=== PATIENT | male | born 1935 | race Asian ===

== ENCOUNTER 2020-01-13 12:09 | Inpatient (IN) | payer BC ==
[~2020-01-13] VITALS: Ht 172.7 cm; Wt 58.0 kg
--- NOTE | 2020-01-13 12:10 | NUR ---
ED Nurse Note: patient brought into ED from [facility] by ambulance BLS due to increased confusion for the past 2 days. patient is awake, confused, following commands, ambulatory, on a hospital gown,
--- NOTE | 2020-01-13 13:00 | NUR ---
HAND-OFF: Report given to Lidia MARTINEZ. endorsed all plan of care.
[2020-01-13 13:02] VITALS: BP 147/91
--- NOTE | 2020-01-13 13:11 | Emergency Room Report ---
History of Present Illness General Chief Complaint: Altered Mental Status Source: Medical Record, EMS Present Illness HPI Disclaimer: Please note that this report is being documented using DRAGON technology. This can lead to erroneous entry secondary to incorrect interpretation by the dictating instrument. HPI: 84-year-old male presents for evaluation of altered mental status. He arrives by EMS. He has a history of dementia. According to transfer paperwork the patient is typically ANO x2 however the past 2 days been increasingly confused. Oriented to self only. He was found tachycardic and hypertensive yesterday but vital signs stabilized today. The patient does not provide any significant history. He is pleasant and conversant though his answers are nonsensical. He has a tough time maintaining focus. No trauma reported. PMH: Diastolic heart failure, prostate cancer, gout, diffuse muscle weakness, hypertension, CAD, dementia PSH: Could not obtain from patient Allergies: Could not obtain from patient Social Hx: Not obtained from patient Allergies: Coded Allergies: No Known Allergies (Unverified , 01/13/20) Nursing Documentation-PMH Past Medical History: No History, Except For Hx Cardiac Problems: Yes - high cholesterol, chf Hx Hypertension: Yes Hx Cancer: Yes - prostate History Of Psychiatric Problem: Yes - dementia Review of Systems All Other Systems: negative except mentioned in HPI Physical Exam Vital Signs Date Time Temp Pulse Resp B/P (MAP) Pulse Ox O2 Delivery O2 Flow Rate FiO2 01/13/20 12:02 98.2 65 20 139/78 (98) 98 Room Air General: Awake, conversant, pleasant, disoriented. No acute distress HEENT: NC/AT. EOMI. PERRLA. Anicteric sclera. Moist mucous membranes. Poor dentition. Cardiovascular: RRR. S1 and S2 normal. No murmur appreciated Resp: Normal work of breathing. No cough, wheezing or crackles appreciated Abdomen: Abdomen is soft, nondistended. Nontender Skin: Intact. No abrasions, laceration or rash over the exposed skin MSK: Normal tone and bulk. Moving all extremities. No obvious deformity. Neuro: Awake, oriented to self only. Moving all extremities. Tangential lines of thought. Difficulty with conversation and concentration. Medical Decision Making Diagnostic Impression: Primary Impression: Altered mental status ER Course 84-year-old male presents from assisted living facility for 2 days worsening confusion and agitation. Differential includes was not limited to infection, electrolyte abnormality, dehydration, occult injury, hyperammonemia, worsening dementia. Start a broad metabolic infectious work-up. There is no evidence of trauma or any trauma reported. He is awake and conversant but disoriented. May require admission. Laboratory Tests Test 01/13/20 13:10 White Blood Count 6.1 K/UL (4.8-10.8) Red Blood Count 3.80 M/UL (4.70-6.10) L Hemoglobin 12.9 G/DL (14.2-18.0) L Hematocrit 38.6 % (42.0-52.0) L Mean Corpuscular Volume 102 FL (80-99) H Mean Corpuscular Hemoglobin 33.8 PG (27.0-31.0) H Mean Corpuscular Hemoglobin Concent 33.3 G/DL (32.0-36.0) Red Cell Distribution Width 13.6 % (11.6-14.8) Platelet Count 248 K/UL (150-450) Mean Platelet Volume 5.6 FL (6.5-10.1) L Neutrophils (%) (Auto) 69.8 % (45.0-75.0) Lymphocytes (%) (Auto) 18.1 % (20.0-45.0) L Monocytes (%) (Auto) 5.8 % (1.0-10.0) Eosinophils (%) (Auto) 3.6 % (0.0-3.0) H Basophils (%) (Auto) 2.8 % (0.0-2.0) H Sodium Level 145 MMOL/L (136-145) Potassium Level 4.2 MMOL/L (3.5-5.1) Chloride Level 109 MMOL/L (98-107) H Carbon Dioxide Level 24 MMOL/L (21-32) Anion Gap 12 mmol/L (5-15) Blood Urea Nitrogen 19 mg/dL (7-18) H Creatinine 1.1 MG/DL (0.55-1.30) Estimate Glomerular Filtration Rate > 60 mL/min (>60) Glucose Level 101 MG/DL (74-106) Calcium Level 9.4 MG/DL (8.5-10.1) Total Bilirubin 0.9 MG/DL (0.2-1.0) Aspartate Amino Transferase (AST) 29 U/L (15-37) Alanine Aminotransferase (ALT) 25 U/L (12-78) Alkaline Phosphatase 75 U/L (46-116) Ammonia < 10 umol/L (11-32) L Total Creatine Kinase 84 U/L (26-308) Troponin I 0.036 ng/mL (0.000-0.056) Total Protein 8.1 G/DL (6.4-8.2) Albumin 2.9 G/DL (3.4-5.0) L Globulin 5.2 g/dL Albumin/Globulin Ratio 0.6 (1.0-2.7) L Salicylates Level < 0.2 ug/mL (2.8-20) L Acetaminophen Level < 2 MCG/ML (10-30) L Serum Alcohol < 3 mg/dL EKG Diagnostic Results EKG Time: 12:49 Rate: normal Rhythm: NSR ST Segments: no acute changes Other Impression Sinus rhythm, normal axis, no acute ST segment changes. Incomplete right bundle. Rhythm Strip Diag. Results Rhythm Strip Time: 12:49 EP Interpretation: yes Rate: 60s Rhythm: NSR, no PVC's, no ectopy Reevaluation Time: 15:01 Last Vital Signs Date Time Temp Pulse Resp B/P (MAP) Pulse Ox O2 Delivery O2 Flow Rate FiO2 01/13/20 13:02 98.2 70 19 147/91 98 Room Air Reevaluation Impression Labs are returned within normal limits. Patient is resting comfortably. His daughter is now present. She states that his mentation has been declining since being in his new nursing facility. States he is not getting the food he wants and therefore is not eating. Reports weight loss over the past 1.5 weeks. Also believes his hearing aid may not be working and that the language barrier at the facility is also making him anxious and angry. Family would like his needs reevaluated to make sure he is getting the appropriate care. They believe he is able to eat solid food and not just pured. They would also like the hearing aid rechecked and possible placement to a different nursing facility. Will admit for further care and work-up of behavioral changes and reported weight loss. Disposition: ADMITTED INPATIENT Condition: Serious Josh Jiménez MD Jan 13, 2020 13:11
[2020-01-13 13:34] LABS: BASOPHILS % (AUTO) 2.8 % (0.0-2.0); EOSINOPHILS % (AUTO) 3.6 % (0.0-3.0); HEMATOCRIT 38.6 % (42.0-52.0); HEMOGLOBIN 12.9 G/DL (14.2-18.0); LYMPHOCYTES % (AUTO) 18.1 % (20.0-45.0); MEAN CORPUSCULAR VOLUME 102 FL (80-99); MONOCYTES % (AUTO) 5.8 % (1.0-10.0); NEUTROPHILS % (AUTO) 69.8 % (45.0-75.0); PLATELET COUNT 248 K/UL (150-450); RED CELL DISTRIBUTION WIDTH 13.6 % (11.6-14.8); WHITE BLOOD COUNT 6.1 K/UL (4.8-10.8)
[2020-01-13 13:54] LABS: ANION GAP 12 mmol/L (5-15); BLOOD UREA NITROGEN 19 mg/dL (7-18); CALCIUM 9.4 MG/DL (8.5-10.1); CARBON DIOXIDE 24 MMOL/L (21-32); CHLORIDE 109 MMOL/L (98-107); CREATININE 1.1 MG/DL (0.55-1.30); POTASSIUM 4.2 MMOL/L (3.5-5.1); SODIUM 145 MMOL/L (136-145)
[2020-01-13 13:58] LABS: ALANINE AMINOTRANSFERASE 25 U/L (12-78); ALBUMIN 2.9 G/DL (3.4-5.0); ALBUMIN/GLOBULIN RATIO 0.6 (1.0-2.7); ALKALINE PHOSPHATASE 75 U/L (46-116); ASPARTATE AMINO TRANSFERASE 29 U/L (15-37); BILIRUBIN,TOTAL 0.9 MG/DL (0.2-1.0); CREATINE KINASE 84 U/L (26-308)
[2020-01-13 13:59] LABS: AMMONIA < 10 umol/L (11-32)
--- NOTE | 2020-01-13 14:40 | NUR ---
ED Nurse Note: urine sent to lab
[2020-01-13 15:21] LABS: APPEARANCE,URINE CLEAR; BILIRUBIN, URINE NEGATIVE (NEGATIVE); GLUCOSE, URINE (UA) NEGATIVE (NEGATIVE); KETONES,URINE NEGATIVE (NEGATIVE); LEUKOCYTE ESTERASE ,URINE NEGATIVE (NEGATIVE); NITRITE,URINE NEGATIVE (NEGATIVE); PH,URINE 6 (4.5-8.0); PROTEIN,URINE NEGATIVE (NEGATIVE); UROBILINOGEN,URINE 1 MG/DL (0.0-1.0)
[2020-01-13 15:27] LABS: COLOR,URINE YELLOW
[2020-01-13] MEDS ORDERED: NITRO0.4 SL (17:01)
[2020-01-13] MEDS ORDERED: NORCO 5-325 TA1 EACH ORAL (17:01)
[2020-01-13] MEDS ORDERED: DONEPEZIL HCL10 M2 ORAL (17:01)
[2020-01-13] MEDS ORDERED: GABAPENTIN300 MG ORAL (17:01)
[2020-01-13] MEDS ORDERED: METOPROLOL TART25 MG ORAL (17:01)
[2020-01-13] MEDS ORDERED: ADALAT10 MG ORAL (17:01)
[2020-01-13] MEDS ORDERED: ATORVASTATIN CA40 MG ORAL (17:01)
[2020-01-13] MEDS ORDERED: ATIVAN1 MG ORAL (17:01)
[2020-01-13] MEDS ORDERED: NEXIUM40 MG ORAL (17:01)
[2020-01-13] MEDS ORDERED: ALBUTEROL2.5 MG/3 M INH (17:01)
[2020-01-13] MEDS ORDERED: FLOMAX0.4 MG ORAL (17:01)
[2020-01-13] MEDS ORDERED: ALLOPURINOL100 M1 ORAL (17:01)
[2020-01-13] MEDS ORDERED: ZOFRAN4 M3 ORAL (17:01)
[2020-01-13] MEDS ORDERED: ASPIRIN EC81 MG ORAL (17:01)
--- NOTE | 2020-01-13 17:04 | NUR ---
ED Nurse Note: Report given to MICHELLE Ayala on 4E.
--- NOTE | 2020-01-13 17:15 | NUR ---
ED Nurse Note: Pt transferred safely to 4E. Pt has no belongings.
--- NOTE | 2020-01-13 17:30 | NUR ---
NURSE NOTES: Contacted Dr Miner for admission orders.
--- NOTE | 2020-01-13 17:32 | NUR ---
NURSE NOTES: Handoff received from MICHELLE Murillo. Patient is alert and oriented to person. Patient is on room air and has a right forearm 22g IV saline locked, flushed and patent. Patient unable to give history or medication recon. Patient oriented to room and call light, with bed alarm on and side rails up x3 reporting nurse states patient is fall risk and attempts to get out of bed, will monitor patient closely.
[2020-01-13] MEDS ORDERED: Albuterol ud Inhalation HHN PRN (18:45)
[2020-01-13] MEDS ORDERED: Bisacodyl EC 5mg tab ORAL PRN (18:45)
[2020-01-13] MEDS ORDERED: Gadavist 7.5mMol/7.5ml vial IV PRN (18:45)
[2020-01-13] MEDS ORDERED: Milk of Magnesia 30ml Ud ORAL PRN (18:45)
[2020-01-13] MEDS ORDERED: NIFEdipine 10mg cap ORAL PRN (18:45)
[2020-01-13] MEDS ORDERED: Fleet's Enema 133ml RECTAL PRN (18:45)
[2020-01-13] MEDS ORDERED: Nitroglycerin Subl 0.4mg tab SL PRN (18:45)
--- NOTE | 2020-01-13 19:36 | NUR ---
HAND-OFF: Report given to MICHELLE Suresh. Pt in stable condition; plan of care endorsed. Pt fall risk. Pt close to nursing station and staff aware. Addendum: 01/13/20 at 1937 by Jamie Mas RN REPORT GIVEN TO MARTINA
--- NOTE | 2020-01-13 19:43 | NUR ---
NURSE NOTES: Report received from MICHELLE Ayala. Patient asleep. Breathing unlabored on room air without distress. No s/s of pain or discomfort noted at this time. Bed placed at the lowest with alarm, brake, and siderails up for safety. Call light placed within reach. Will continue to monitor and provide care as ordered.
[2020-01-13 20:00] VITALS: BP 139/104
[2020-01-13] MEDS: Atorvastatin 20mg tab ORAL SCH (20:43)
[2020-01-13] MEDS: Tamsulosin 0.4mg cap ORAL SCH (20:43)
[2020-01-13] MEDS: Heparin 5000 units/ml inj SUBQ SCH (20:48)
[2020-01-14] VITALS: BP 148/96
--- NOTE | 2020-01-14 04:49 | NUR ---
NURSE NOTES: Patient impulsive to get up and go to the bathroom, but has unsteady gait. Bedside commode and urinal are placed at the bedside to accommodate patient's needs at this time. Awaiting for PT evaluation for patient's activity tolerance.
--- NOTE | 2020-01-14 07:16 | NUR ---
HAND-OFF: Report given to MICHELLE Marmolejo. Plan of care endorsed.
--- NOTE | 2020-01-14 07:52 | NUR ---
NURSE NOTES: Received patient in bed asleep. No SOB or acute distress. IV line intact and patent. HOB elevated. Bed locked in lowest position. Call light within reach. For MRI without contrast today. Will continue plan of care.
[2020-01-14 08:00] VITALS: BP 138/85
--- NOTE | 2020-01-14 08:30 | NUR ---
NURSE NOTES: Patient brought down for MRI.
[2020-01-14] MEDS ORDERED: Donepezil 10mg tab ORAL SCH (09:00)
--- NOTE | 2020-01-14 09:18 | NUR ---
MRI BRAIN COMPLETED.
[2020-01-14] MEDS: Aspirin Baby 81mg NG SCH (09:36)
[2020-01-14] MEDS: Allopurinol 100mg Tab ORAL SCH (09:36)
[2020-01-14] MEDS: Heparin 5000 units/ml inj SUBQ SCH ×2 (09:38→21:07)
--- NOTE | 2020-01-14 10:30 | History and Physical Report ---
DATE OF ADMISSION: 01/13/2020 NOTE: POOR AUDIO REASON FOR ADMISSION: Worsening confusion. HISTORY OF PRESENT ILLNESS: This is an 84-year-old male who presented for evaluation. The patient has worsening confusion and alteration in mental status. The patient has baseline dementia, typically more controlled, however, the patient has been more agitated and confused . The patient was noted to be tachycardic and hypertensive, admitted for further care and management and evaluation. PAST MEDICAL HISTORY: Notable for diastolic heart failure, prostate cancer, gout, diffuse muscle weakness, hypertensive, CAD, and dementia. MEDICATIONS: Reviewed. ALLERGIES: Reviewed. SOCIAL HISTORY: Resides at a [facility] facility. PHYSICAL EXAMINATION: GENERAL: The patient is a well-developed male, overall confused and agitated VITAL SIGNS: Temperature 98, pulse 68, respirations 19, blood pressure 142/94, and saturation 98%. HEENT: Negative. NECK: Supple. No lymphadenopathy. LUNGS: Moderate breath sounds. CARDIAC: S1 and S2. Regular rate and rhythm. ABDOMEN: Soft, nontender. EXTREMITIES: No edema. NEUROLOGIC: Agitated and confused. LABORATORY DATA: Reviewed. CBC is noted, notable for mild anemia. IMPRESSION: Confusion of unclear significance. toxic metabolic encephalopathy likely. PLAN supportive care. Psychiatric evaluation and clearance Monitor off antibiotics. Will follow clinically for any change in his clinical condition. Ozzy Miner M.D. DR: Eugenio JOB#: [id number] CC: NANCY
[2020-01-14 12:00] VITALS: BP 157/97
[2020-01-14] MEDS: LORazepam 1mg tab ORAL PRN (13:08)
--- NOTE | 2020-01-14 13:13 | NUR ---
CHARGE NURSE NOTE: PT restless, confused, unsteady, trying get out of the bed, and pulling his IV line. was called for restraints order.
--- NOTE | 2020-01-14 13:29 | NUR ---
NURSE NOTES: Patient combative, getting out of bed, pulled out IV, refused oral medication, confused. Placed on restraints as ordered. Contacted Dr Kirk for IM medications, awaiting response.
--- NOTE | 2020-01-14 13:31 | Pulmonology Progress Note ---
Assessment/Plan Assessment/Plan Progress Note HPI: Isabella patient is an 84-year-old admitted worsening confusion and alteration in mental status, he has baseline dementia, typically oriented x 2, however, the patient has been more confused. The patient was noted to be tachycardic and hypertensive, admitted for further care and management and evaluation. Stable VS since admission, no arrythmia on EKG PAST MEDICAL HISTORY: Notable for diastolic heart failure, prostate cancer, gout, diffuse muscle weakness, hypertensive, CAD, previous NSTEMI, hearing loss and dementia. PHYSICAL EXAMINATION: GENERAL: The patient is a well-developed male, overall confused, responds to commands, knows name VITAL SIGNS NOTED, STABLE HEENT: Negative. NECK: Supple. No lymphadenopathy. LUNGS: Moderate breath sounds. CARDIAC: S1 and S2. Regular rate and rhythm. ABDOMEN: Soft, nontender. EXTREMITIES: No edema. NEUROLOGIC: No focal signs, known name, responds to commands LABORATORY DATA: Reviewed. CBC is noted, notable for mild anemia. IMPRESSION: AMS, metabolic encephalopathy, CAD, previous NSTEMI, Chronic hearing Loss. Plan: Supportive care. monitor labs. Psychiatric evaluation. Monitor antibiotics. Will follow clinically for any change in his clinical condition. Subjective ROS Limited/Unobtainable: No Allergies: Coded Allergies: No Known Allergies (Unverified , 01/13/20) Objective Last 24 Hour Vital Signs Date Time Temp Pulse Resp B/P (MAP) Pulse Ox O2 Delivery O2 Flow Rate FiO2 01/14/20 12:00 97.3 65 20 157/97 (117) 97 01/14/20 09:36 73 138/85 01/14/20 09:00 Room Air 01/14/20 08:00 97.1 73 20 138/85 (102) 98 01/14/20 00:00 97.0 62 20 148/96 (113) 99 01/13/20 21:00 Room Air 01/13/20 20:45 65 139/104 01/13/20 20:00 97.0 65 21 139/104 (116) 96 01/13/20 17:32 Room Air 01/13/20 17:15 98.0 68 19 142/94 98 Room Air Intake and Output 01/13/20 01/14/20 19:00 07:00 Intake Total 1300 ml Output Total 300 ml Balance 1000 ml Intake Oral 300 ml IV Total 1000 ml Output Urine Total 300 ml # Voids 3 Microbiology Date/Time Source Procedure Growth Status 01/13/20 16:50 Rectum Received Laboratory Tests 01/13/20 14:40: Urine Color Yellow, Urine Appearance Clear, Urine pH 6, Urine Specific [place] 1.020, Urine Protein Negative, Urine Glucose (UA) Negative, Urine Ketones Negative, Urine Blood 1+H, Urine Nitrite Negative, Urine Bilirubin Negative, Urine Urobilinogen 1H, Urine Leukocyte Esterase Negative, Urine RBC 0-2H, Urine WBC 0-2, Urine Squamous Epithelial Cells None, Urine Bacteria Occasional, Urine Opiates Screen Negative, Urine Barbiturates Screen Negative, Phencyclidine (PCP ) Screen Negative, Urine Amphetamines Screen Negative, Urine Benzodiazepines Screen Negative, Urine Cocaine Screen Negative, Urine Marijuana (THC) Screen Negative Current Medications Medications (Trade) Dose Ordered Sig/Dorothy Route PRN Reason Start Time Stop Time Status Last Admin Dose Admin Acetaminophen (Tylenol) 650 mg Q4H PRN ORAL Mild Pain/Temp > 100.5 01/13/20 18:45 02/12/20 18:44 Al Hydroxide/Mg Hydroxide (Mylanta) 30 ml Q6H PRN ORAL Abdominal cramps 01/13/20 18:45 02/12/20 18:44 Albuterol Sulfate (Proventil) 2.5 mg Q6H PRN HHN Shortness of Breath 01/13/20 18:45 01/18/20 18:44 Allopurinol (Zyloprim) 100 mg DAILY ORAL 01/14/20 09:00 02/13/20 08:59 01/14/20 09:36 Aspirin (ASA) 81 mg DAILY NG 01/14/20 09:00 02/13/20 08:59 01/14/20 09:36 Atorvastatin Calcium (Lipitor) 40 mg BEDTIME ORAL 01/13/20 21:00 02/12/20 20:59 01/13/20 20:43 Bisacodyl (Dulcolax) 5 mg DAILYPRN PRN ORAL Constipation 01/13/20 18:45 02/12/20 18:44 Donepezil HCl (Aricept) 10 mg DAILY ORAL 01/14/20 09:00 02/13/20 08:59 01/14/20 09:36 Gabapentin (Neurontin) 100 mg BEDTIME ORAL 01/13/20 21:00 02/12/20 20:59 01/13/20 20:44 Gadobutrol (Gadavist) 7.5 mmol NOW PRN IV Radiology Procedure 01/13/20 18:45 01/17/20 18:35 Heparin Sodium (Porcine) (Heparin 5000 units/ml) 5,000 units EVERY 12 HOURS SUBQ 01/13/20 21:00 02/12/20 20:59 01/14/20 09:38 Lorazepam (Ativan) 1 mg Q4H PRN ORAL For Anxiety 01/13/20 18:45 01/20/20 18:44 01/14/20 13:08 Magnesium Hydroxide (Mom) 5 ml DAILY PRN ORAL Constipation 01/13/20 18:45 02/12/20 18:44 Metoprolol Tartrate (Lopressor) 25 mg Q12HR ORAL 01/13/20 21:00 02/12/20 20:59 01/14/20 09:36 Nifedipine (Adalat) 10 mg Q4H PRN ORAL For High Blood Pressure 01/13/20 18:45 02/12/20 18:44 Nitroglycerin (Ntg) 0.4 mg Q5M PRN SL Prn Chest Pain 01/13/20 18:45 02/12/20 18:44 Non-Formulary Medication (Non-Formulary Med) 1 ea DAILY ORAL 01/14/20 09:00 02/13/20 08:59 UNV Ondansetron HCl (Zofran) 4 mg Q6H PRN IVP Nausea & Vomiting 01/13/20 18:45 02/12/20 18:44 Pantoprazole (Protonix) 40 mg DAILY ORAL 01/14/20 09:00 02/13/20 08:59 01/14/20 09:36 Sodium Chloride 1,000 ml @ 100 mls/hr Q10H IV 01/13/20 19:30 02/12/20 19:29 01/14/20 05:00 Sodium Phosphate (Fleet's Sodium Phosl Enema) 133 ml PRN PRN RECTAL CONSTIPATION 01/13/20 18:45 02/12/20 18:44 Tamsulosin HCl (Flomax) 0.4 mg BEDTIME ORAL 01/13/20 21:00 02/12/20 20:59 01/13/20 20:43 Kyle York MD Jan 14, 2020 13:31
--- NOTE | 2020-01-14 13:42 | Diagnostic Imaging Report ---
Indication: Altered mental status Technique: The head was imaged in a 1.5 Mira magnet. Sequences obtained include sagittal and axial T1 FLAIR, axial T2 fast spin echo with fat saturation, axial T2* GRE, axial T2 FLAIR, diffusion and ADC map. Comparison: None Findings: There is moderate prominence of the sulci, ventricles, and basal cisterns consistent with atrophy. Moderate, nonspecific T2 hyperintensity noted within white matter. This may be due to chronic small vessel disease. There is no restricted diffusion. Morrison-white differentiation is normal. There is no mass effect, midline shift, edema, or hemorrhage. There are no abnormal extra-axial or intra-axial fluid collections. The corpus callosum and sella are unremarkable. The brainstem and cerebellum are unremarkable. Bone marrow signal within the visualized osseous structures appears age appropriate and unremarkable otherwise. There is an air-fluid level demonstrated within the left maxillary sinus. Mucosal thickening in ethmoid region also noted. Impression: No acute intracranial findings. Moderate atrophy and evidence of chronic small vessel disease involving white matter tracts. Sinusitis
--- NOTE | 2020-01-14 13:45 | NUR ---
NURSE NOTES: No iv access, unable to reinsert due to combative behavior, aware.
[2020-01-14] MEDS ORDERED: DiphenhydrAMINE 50mg/ml Inj IM SCH (14:00)
[2020-01-14] MEDS ORDERED: Haloperidol 5mg/ml Inj IM SCH (14:00)
[2020-01-14] MEDS ORDERED: LORazepam Inj 2mg/ml 1ml IM SCH (14:00)
--- NOTE | 2020-01-14 14:32 | NUR ---
ST NOTES: REFERRED FOR SWALLOW EVAL BY DR SOTO, SEE FULL REPORT. DYSPHAGIA RISK FACTORS FOR THIS 84 Y.O. [place] AND [place]-SPEAKING MALE: ACUTE ISSUES: ACUTE AMS, AGITATED, POOR INTAKE FOR 1.5 WEEKS (DISLIKES PUREED), WEIGHT LOSS ? HOW MUCH IN WHAT PERIOD OF TIME, HYPERTENSION PER RECENT BRAIN MRI NEGATIVE ACUTE ISSUES, HAS MODERATE BRAIN ATROPHY, PER MD LUNGS ARE CLEAR. H/O DEMENTIA, DYSPHAGIA, ON GERD MEDS, WT LOSS, PNA, [place] 2018, CAD, PROSTATE CA, GOUT. NO POLST NOR ADVANCE DIRECTIVE REGARDING TUBE FEEDING PREFERENCES. AT SNF ON PUREED DIET AND ? TYPE OF LIQUIDS BUT DISLIKED FOOD TEXTURE AND HAD POOR INTAKE. FAMILY BELIEVES HE CAN CHEW SOLID FOODS. PER RN, NO PROBLEMS WITH MEDS BUT WILL CHEW WHOLE PILLS. NOW ON A SOFT CHEW DIET AND THIN LIQUIDS WITH 100% OF ONE MEAL. DID NOT WANT HIS BREAKFAST TODAY. ALERT AND ABLE TO EXPRESS BASIC NEEDS. 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 GIVEN THIN LIQUIDS VIA STRAW (SEQUENTIAL SIPS 3 0Z WATER [place] SWALLOW PROTOCOL), ABLE TO DRINK ENTIRE ABOUT W/O OVERT ASPIRATION. GIVEN PUREED TSP, WILL CHEW A FEW SECONDS AND SWALLOW AND SWALLOW AGAIN W/O OVERT ASPIRATION. GIVEN MASTICATED SOLIDS, CHEWED 10 SEC AND SWALLOWED WITH FAIR HYOLARYNGEAL EXCURSION, AND ASKED FOR WATER TO CLEAR MILD ORAL RESIDUE, NO OVERT ASPIRATION. HAS SILENT ASP RISK DUE TO DEMENTIA DX BUT LUNGS ARE CLEAR 100% INTAKE ON SOFT CHEW DIET RECOMMENDATIONS: CONSIDER MOD BARIUM SWALLOW STUDY TO FURTHER ASSESS SWALLOW, DETERMINE SILENT ASP RISK AND ATTEMPT TRIAL TX. IF PO CONTINUES FOR QUALITY OF LIFE (PATIENT/FAMILY WANT PO), CONSIDER CONTINUING WITH CURRENT SOFT CHEW DIET AND THIN LIQUIDS (PT DISLIKES DIET/LIQUID DOWNGRADES) WITH POSTED ASP/REFLUX PRECAUTIONS AND ASSIST WITH MEALS. CRUSH CRUSHABLE MEDS AND ADD TO APPLESAUCE ( HE TENDS TO CHEW ON PILLS) DIET TYPE PER RD (NO REPORT TO DATE). SEND DATABASE OPERATOR TO GIVE FOODS OF PREFERENCE SINCE PT HAS FOOD PREFERENCES AND PREVIOUSLY WAS ANGRY WHEN HE DIDN'T GET THE FOOD HE WANTED. EDUCATED/TRAINED RN IN POSTED PRECAUTIONS SKILLED DYSPHAGIA MANAGEMENT AND TX AND COG-COM EVAL/TX PATIENT IS [place] AND REPORTEDLY HIS HEARING AID IS NOT WORKING. Addendum: 01/14/20 at 1437 by ASHUTOSH CRUZ HAS SOME ANTERIOR UPPER TEETH AND ON LOWER TOOTH NO MOLARS NOR DENTURES.
--- NOTE | 2020-01-14 14:36 | NUR ---
P.T Note: P.T evaluation completed and tx initiated. Please refer to P.T evaluation for current functional status. Pt is alert , Oriented to time but not to place, time and current situation however follows commands appropriately. Pt had no c/o pain but generalized weakness. Pt currently require MIN A X 1 for bed mobility , transfer and gait/ambulation activities. Skilled P.T service is warranted to improve strength and balance to increase mobility independence and safety. Recommend return to prior living arrangement with continued P.T intervention.
--- NOTE | 2020-01-14 15:19 | NUR ---
Correction from the above notes re: cognitive status Pt is alert, Oriented to self but not to time, place and situation. Pt follows commands appropriately.
--- NOTE | 2020-01-14 15:38 | NUR ---
CASE MANAGEMENT:INITIAL REVIEW 84 YR OLD MALE BIBA FROM [facility] CC;ALTERED MENTAL STATUS SI;ALTERED MENTAL STATUS 98.2 70 21 142/94 96% ON RA CL 109 BUN 19 AMMONIA <10 ALB 2.9 IS;SALINE FLUSH BRAIN MRI=No acute intracranial findings. ADMITTED TO MED SURG MED SURG STATUS DCP;FROM [facility]
[2020-01-14] MEDS ORDERED: Varibar Honey 250ml MC PRN (15:45)
[2020-01-14] MEDS ORDERED: Varibar Thin Liquid powder 148gm MC PRN (15:45)
[2020-01-14] MEDS ORDERED: Varibar Nectar 240ml MC PRN (15:45)
[2020-01-14] MEDS ORDERED: Varibar Pudding 230ml MC PRN (15:45)
[2020-01-14 16:00] VITALS: BP 149/97
--- NOTE | 2020-01-14 16:20 | NUR ---
*-* INSURANCE *-* ALL CLINICALS AND REVIEWS HAVE BEEN FAXED TO: Ref# [id number] & Urdu Jen Burt or tracking # [id number] ph#[phone] fax# [phone]
--- NOTE | 2020-01-14 19:00 | NUR ---
NURSE NOTES: IV line reinserted to left hand g22.
--- NOTE | 2020-01-14 19:33 | NUR ---
HAND-OFF: Report given to
--- NOTE | 2020-01-14 19:34 | NUR ---
NURSE NOTES: Received patient in no apparent distress. A&OX1. IV site patent and intact. Restraint noted on bilateral wrist, radial pulse present, skin intact. Granddaughter at bedside, remind bring patient's home medication(Ticagrelor). Bed in lowest position. Call light within reach. Will continue to monitor.
--- NOTE | 2020-01-14 19:54 | NUR ---
NURSE NOTES: Spoke with grand daughter regarding Ticagrelor medication, said will bring it tomorrow.
[2020-01-14 20:00] VITALS: BP 155/100
[2020-01-14] MEDS ORDERED: MILK OF MA400 MG/51 ORAL (20:08)
[2020-01-14] MEDS ORDERED: GABAPENTIN100 MG ORAL (20:08)
[2020-01-14] MEDS ORDERED: ACETAMINOPHEN325 M1 ORAL ×2 (20:08)
[2020-01-14] MEDS ORDERED: MAALOX ADVANCE770 ML PO (20:08)
[2020-01-14] MEDS ORDERED: BRILINTA90 MG PO (20:08)
[2020-01-14] MEDS ORDERED: ENEMA133 M1 RC (20:08)
[2020-01-14] MEDS ORDERED: BISACODYL5 MG ORAL (20:48)
[2020-01-14] MEDS: Tamsulosin 0.4mg cap ORAL SCH (21:06)
[2020-01-14] MEDS: Atorvastatin 20mg tab ORAL SCH (21:06)
[2020-01-15] VITALS: BP 151/90
--- NOTE | 2020-01-15 01:45 | Consultation ---
DATE OF CONSULTATION: 01/14/2020 CONSULTING PHYSICIAN: Keke Kirk M.D. HISTORY OF PRESENT ILLNESS: This is an 84-year-old male with a history of multiple medical issues, who has been admitted to the hospital for medical stabilization. The patient is on restraint, agitated, and refusing medication. The patient has been more confused than baseline. Daughter was at bedside. PAST PSYCHIATRIC HISTORY: Dementia, anxiety disorder. PAST MEDICAL HISTORY: Heart failure, cancer, gout, diffuse muscle weakness, hypertension, and CAD. ALLERGIES: No known drug allergies. SUBSTANCE ABUSE HISTORY: No known history of illicit drug use or alcohol. MENTAL STATUS EXAMINATION: The patient is alert and oriented times self. Mood is anxious, affect is flat. Thought process is concrete. Thought content, no suicidal or homicidal ideation. ASSESSMENT: Beverly I: Dementia with behavior disturbance. PLAN: 1. Start the patient on Seroquel 25 mg t.i.d. 2. Provide the patient with reality orientation and supportive therapy. Keke Kirk M.D. DR: ELIGIO JOB#: [id number] CC: NANCY
[2020-01-15 04:00] VITALS: BP 158/96
--- NOTE | 2020-01-15 07:20 | NUR ---
HAND-OFF: Report given to Rickie MARTINEZ.
--- NOTE | 2020-01-15 07:31 | NUR ---
NURSE NOTES: Received report from MICHELLE Marte, patient sleeping in supine position with bilateral soft wrist restraints in place, bed in lowest position, call light within reach, respirations at 16 breaths per minute, no s/s of pain, in no apparent distress.
[2020-01-15 08:00] VITALS: BP 152/93
--- NOTE | 2020-01-15 08:10 | NUR ---
NURSE NOTES: Attempted to contact family to request a home medication, Ticagrelor. Called [facility] Booth, and no answer. Called Trina Rey, and left message requesting medication.
--- NOTE | 2020-01-15 08:21 | General Progress Note ---
Assessment/Plan Assessment/Plan: toxic met encephalopathy delirium agitation PLAN psych follow up monitor for change await clearance and dc back to snf impression, plan, and exam edited and reviewed in detail care discussed with RN Subjective Allergies: Coded Allergies: No Known Allergies (Unverified , 01/13/20) Subjective psych noted care reviewed Objective Last 24 Hour Vital Signs Date Time Temp Pulse Resp B/P (MAP) Pulse Ox O2 Delivery O2 Flow Rate FiO2 01/15/20 04:00 98.1 67 20 158/96 (116) 97 01/15/20 00:00 97.9 69 20 151/90 (110) 97 01/14/20 21:06 88 155/100 01/14/20 21:00 Room Air 01/14/20 20:00 97.8 88 20 155/100 (118) 96 01/14/20 16:00 97.1 72 20 149/97 (114) 98 01/14/20 12:00 97.3 65 20 157/97 (117) 97 01/14/20 09:36 73 138/85 01/14/20 09:00 Room Air Intake and Output 01/14/20 01/15/20 19:00 07:00 Intake Total 100 ml 1000 ml Balance 100 ml 1000 ml IV Total 100 ml 1000 ml # Voids 1 # Bowel Movements 1 1 Laboratory Tests 01/14/20 18:00: Thyroid Stimulating Hormone (TSH) 2.468 Height (Feet): 5 Height (Inches): 8.00 Weight (Pounds): 127 Objective WDWN NAD clear breath sounds bilaterally without rhonchi or wheeze [id number] without MRG NABS nontender no HSM no CCE nonfocal confused Ozzy Miner MD Jan 15, 2020 08:20
[2020-01-15] MEDS: Allopurinol 100mg Tab ORAL SCH (09:32)
[2020-01-15] MEDS: Aspirin Baby 81mg NG SCH (09:33)
[2020-01-15] MEDS: Heparin 5000 units/ml inj SUBQ SCH ×2 (09:34→21:23)
[2020-01-15] MEDS ORDERED: ISOSORBIDE DINIT5 MG ORAL (11:39)
[2020-01-15] MEDS ORDERED: ISOSORBIDE MONO30 M1 PO (11:43)
[2020-01-15 12:00] VITALS: BP 120/75
[2020-01-15] MEDS: BRILINTA 90 MG ORAL SCH (14:20)
--- NOTE | 2020-01-15 14:35 | NUR ---
CASE MANAGEMENT:REVIEW SI;TOX METABOLIC ENCEPHALOPATHY. DELIRIUM. AGITATION. 97.1 57 20 158/96 97% ON RA NO LABS AVAILABLE IS;SEROQUEL PO TID PROTONIX PO QD LORAZEPAM PO Q4 HRS PRN IVF NS @100 ML/HR ZYLOPRIM PO QD ASA PO QD MED SURG STATUS PLAN;PSYCH FOLLOW UP MONITOR FOR CHANGE DC TO SNF PENDING CLEARANCE DCP;FROM [facility]
[2020-01-15 16:00] VITALS: BP 146/87
[2020-01-15] MEDS: LORazepam 1mg tab ORAL PRN ×2 (18:40→22:51)
--- NOTE | 2020-01-15 19:15 | Progress Note ---
DATE: 01/15/2020 SUBJECTIVE: The patient is in bed. The patient is having episodes of anxiety, much calmer, more manageable, on restraints. MENTAL STATUS EXAMINATION: Alert and oriented times self. Mood is neutral to anxious. Affect is flat. Thought process is concrete. Thought content, no suicidal or homicidal ideation. Cognition is impaired. Insight and judgment is impaired. ASSESSMENT: Dementia with behavior disturbance. PLAN: 1. Lorazepam as needed. 2. Seroquel 25 mg t.i.d. 3. Discussed with the nurse. Keke Kirk M.D. DR: Alexander JOB#: [id number] CC: NANCY
--- NOTE | 2020-01-15 19:49 | NUR ---
HAND-OFF: Report given to [place] RN. Patient in semi-Heredia's position, awake and confused, alert to name, television on, on room air, respirations at 16 breaths per minute, bed in lowest position, call light within reach, no c/o pain, no SOB, in no apparent distress.
--- NOTE | 2020-01-15 19:53 | NUR ---
NURSE NOTES: Pt received from outgoing RN Rickie. Pt is in bed, awake and confused. No acute distress noted. Vitas stable. Bilat soft wrist restraints in place, restraint sites asymptomatic. Pt will be allowed to have ROM exercises. Pt will be fed, cleaned and repositioned frequently . Pt removed the IV access that was inserted during last shift, another IV acces swill be established as soon as possible. Pt is high fall risk, Fall precaution in place. Bed alarm on. Pt is close to the nursing station, staff aware of fall risk status. Bed locked low in position,side rails up and call light within reach. Pt will be monitored.
[2020-01-15 20:00] VITALS: BP 136/76
[2020-01-15] MEDS: Atorvastatin 20mg tab ORAL SCH (21:22)
[2020-01-15] MEDS: Tamsulosin 0.4mg cap ORAL SCH (21:22)
[2020-01-15] MEDS ORDERED: Haloperidol 5mg/ml Inj IM ONE (23:45)
[2020-01-15] MEDS ORDERED: DiphenhydrAMINE 50mg/ml Inj IM ONE (23:45)
[2020-01-16] VITALS: BP 130/76
--- NOTE | 2020-01-16 03:21 | NUR ---
NURSE NOTES: Pt is little more calm, pt sleeps on and off. Bilat soft wrist restraints on. Pt repositioned frequently, reality orientation provided, food and beverages offered. Pt allowed to have active ROM exercises. Fall precaution in place. Pt will continually be monitored.
[2020-01-16 04:00] VITALS: BP 154/85
[2020-01-16] MEDS: LORazepam 1mg tab ORAL PRN ×2 (05:29→22:39)
--- NOTE | 2020-01-16 07:20 | NUR ---
NURSE NOTES: RECEIVED PATIENT IN BED ASLEEP/LETHARGIC. HOB ELEVATED FOR ADEQUATE VENTILATION. BILATERAL SOFT WRISTS RESTRAINTS APPLIED FOR POSSIBLE GETTING OUT OF BED. NO ACUTE CARDIO-RESP DISTRESS NOTED. SIDERAILS ARE UPX3, CALL LIGHT IS WITHIN EASY REACH. BED ALAM ENGAGED AND LOCK @ ALL TIMES. WILL CONT TO MONITOR.
--- NOTE | 2020-01-16 07:25 | NUR ---
HAND-OFF: Report given to Dorothy Monge LVN.Informed incoming nurse that patient is High Fall risk. Fall precaution in place.
[2020-01-16 08:02] VITALS: BP 138/80
--- NOTE | 2020-01-16 08:38 | General Progress Note ---
Assessment/Plan Assessment/Plan: toxic met encephalopathy delirium agitation PLAN psych follow up monitor for change await clearance and dc back to snf will d/w psych and confirm impression, plan, and exam edited and reviewed in detail care discussed with RN Subjective Allergies: Coded Allergies: No Known Allergies (Unverified , 01/13/20) Subjective psych noted care reviewed Objective Last 24 Hour Vital Signs Date Time Temp Pulse Resp B/P (MAP) Pulse Ox O2 Delivery O2 Flow Rate FiO2 01/16/20 08:02 96.1 68 18 138/80 (99) 99 01/16/20 04:00 98.5 67 20 154/85 (108) 97 01/16/20 00:00 97.1 66 18 130/76 (94) 97 01/15/20 21:22 70 136/76 01/15/20 21:00 Room Air 01/15/20 20:00 97.5 70 18 136/76 (96) 96 01/15/20 16:00 97.8 74 18 146/87 (106) 100 01/15/20 12:00 97.1 57 16 120/75 (90) 100 01/15/20 09:32 61 152/93 01/15/20 09:00 Room Air Intake and Output 01/15/20 01/16/20 19:00 07:00 Intake Total 880 ml 1000 ml Balance 880 ml 1000 ml Intake Oral 480 ml IV Total 400 ml 1000 ml # Voids 5 2 Height (Feet): 5 Height (Inches): 8.00 Weight (Pounds): 127 Objective WDWN NAD clear breath sounds bilaterally without rhonchi or wheeze [id number] without MRG NABS nontender no HSM no CCE nonfocal confused Ozzy Miner MD Jan 16, 2020 08:38
[2020-01-16] MEDS: BRILINTA 90 MG ORAL SCH (08:42)
[2020-01-16] MEDS: Aspirin Baby 81mg NG SCH (08:42)
[2020-01-16] MEDS: Allopurinol 100mg Tab ORAL SCH (08:43)
[2020-01-16] MEDS: Heparin 5000 units/ml inj SUBQ SCH ×2 (08:43→20:34)
--- NOTE | 2020-01-16 10:12 | NUR ---
*-* INSURANCE *-* ALL CLINICALS AND REVIEWS HAVE BEEN FAXED TO: Ref# [id number] & Armenian Jen Burt or tracking # mitch ph#[phone] fax# [phone]
--- NOTE | 2020-01-16 10:45 | NUR ---
PT NOTE Attempted to see patient for PT treatment. Patient sleeping, able to arouse. Patient declined to participate with PT. Debbie LOCATION DIRECTOR notified, will re-attempt later as schedule permits.
[2020-01-16 12:00] VITALS: BP 151/80
--- NOTE | 2020-01-16 12:49 | NUR ---
CASE MANAGEMENT:REVIEW SI;TOXIC MET ENCEPHALOPATHY. DELIRIUM. AGITATION. 96.1 80 20 154/85 97% ON RA NO LABS IS;SEROQUEL PO TID PROTONIX PO QD ZYLOPRIM PO QD ASA PO QD IVF NS @ 100 ML/HR MED SURG STATUS PLAN;PSYCH FOLLOW UP MONITOR FOR CHANGE DC TO SNF WHEN MEDICALLY CLEARED DCP;FROM [facility]
--- NOTE | 2020-01-16 14:35 | NUR ---
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 awaiting for a response. will cont to monitor. Addendum: 01/16/20 at 1451 by TUCKER WALLER LVN no new order obtained.
[2020-01-16 16:00] VITALS: BP 138/82
--- NOTE | 2020-01-16 19:10 | NUR ---
NURSE NOTES: received patient on bed, awake with grand daughter on the bedside.noted patient screaming garbled words. no sob. with iv line on the right forearm running NS @ 100 ml/hr. condom catheter is not in placed. will reinsert catheter. with bilateral soft wrist restraints noted. no injury upon assessment. reiterated to call or ask for assistance. bed locked and in lowest position. bed alarm on. call light and light button within easy reach. will continue plan of care.
--- NOTE | 2020-01-16 19:20 | NUR ---
HAND-OFF: Report given to
[2020-01-16 19:59] VITALS: BP 142/79
[2020-01-16] MEDS: Tamsulosin 0.4mg cap ORAL SCH (20:32)
[2020-01-16] MEDS: Atorvastatin 20mg tab ORAL SCH (20:33)
[2020-01-17] VITALS: BP 145/75
--- NOTE | 2020-01-17 02:15 | Progress Note ---
DATE: 01/16/2020 SUBJECTIVE: The patient is still having episodes of agitation, much more improved. More manageable. No behavior issues noted. MENTAL STATUS EXAMINATION: The patient is alert and oriented times self. Mood is anxious. Affect is flat. Thought process is concrete. Thought content, no suicidal or homicidal ideation. ASSESSMENT: Stable. PLAN: We will continue current psychotropic medications. Keke Kirk M.D. DR: ELIGIO JOB#: [id number] CC:
[2020-01-17] MEDS: LORazepam 1mg tab ORAL PRN ×2 (03:15→20:15)
[2020-01-17 04:00] VITALS: BP 135/88
--- NOTE | 2020-01-17 07:34 | NUR ---
HAND-OFF: Report given to bharat harrington.
[2020-01-17 07:47] VITALS: BP 160/90
--- NOTE | 2020-01-17 08:18 | NUR ---
NURSE NOTES: Received patient in bed asleep. No SOB or acute distress. Bilateral soft wrist restraints in place, pulses palpable, no skin issues noted on site. IV line intact and patent. Condom catheter intact. HOB elevated. Side rails up. Bed locked in lowest position, alarm on high sensitivity setting. Call light within reach. Will continue frequent rounding and plan of care.
[2020-01-17] MEDS: Allopurinol 100mg Tab ORAL SCH (08:56)
[2020-01-17] MEDS: Aspirin Baby 81mg NG SCH (08:57)
[2020-01-17] MEDS: BRILINTA 90 MG ORAL SCH (08:57)
[2020-01-17] MEDS: Heparin 5000 units/ml inj SUBQ SCH ×2 (08:58→20:19)
--- NOTE | 2020-01-17 10:30 | General Progress Note ---
Assessment/Plan Assessment/Plan: toxic met encephalopathy delirium agitation PLAN psych follow up monitor for change await clearance and dc back to snf will d/w psych and confirm impression, plan, and exam edited and reviewed in detail care discussed with RN Subjective Allergies: Coded Allergies: No Known Allergies (Unverified , 01/13/20) Subjective psych noted care reviewed Objective Last 24 Hour Vital Signs Date Time Temp Pulse Resp B/P (MAP) Pulse Ox O2 Delivery O2 Flow Rate FiO2 01/17/20 09:00 Room Air 01/17/20 08:57 84 160/90 01/17/20 07:47 98.3 84 18 160/90 (113) 95 01/17/20 04:00 98.0 91 18 135/88 (104) 95 01/17/20 00:00 97.6 95 20 145/75 (98) 96 01/16/20 21:00 Room Air 01/16/20 20:33 91 152/89 01/16/20 19:59 97.0 91 18 142/79 (100) 96 01/16/20 16:00 98.5 83 19 138/82 (100) 96 01/16/20 12:00 97.8 80 17 151/80 (103) 97 Intake and Output 01/16/20 01/17/20 19:00 07:00 Intake Total 800 ml 900 ml Output Total 600 ml Balance 800 ml 300 ml IV Total 800 ml 900 ml Output Urine Total 600 ml Height (Feet): 5 Height (Inches): 8.00 Weight (Pounds): 127 Objective WDWN NAD clear breath sounds bilaterally without rhonchi or wheeze [id number] without MRG NABS nontender no HSM no CCE nonfocal confused Ozzy Miner MD Jan 17, 2020 10:30
[2020-01-17 12:00] VITALS: BP 161/79
[2020-01-17 16:00] VITALS: BP 144/86
--- NOTE | 2020-01-17 19:06 | NUR ---
HAND-OFF: Report given to
--- NOTE | 2020-01-17 19:07 | NUR ---
NURSE NOTES: received patient on bed, talking to himself. with condom catheter in placed. iv line on the right forearm. with bilateral soft wrist restraints, no injury noted. no sob. reiterated to call or ask for assistance. bed locked and in lowest position. call light and light button within easy reach. will continue plan of care.
[2020-01-17 20:00] VITALS: BP 145/94
[2020-01-17] MEDS: Atorvastatin 20mg tab ORAL SCH (20:16)
[2020-01-17] MEDS: Tamsulosin 0.4mg cap ORAL SCH (20:16)
[2020-01-18] VITALS: BP 143/91
--- NOTE | 2020-01-18 01:26 | NUR ---
NURSE NOTES: Patient is awake, talking and shouting with garbled words. kicking his legs to the bed. no sob. bed locked and in lowest position. bed alarm on. call light and light button within easy reach. will continue plan of care.
[2020-01-18] MEDS: LORazepam 1mg tab ORAL PRN (01:34)
[2020-01-18 04:00] VITALS: BP 118/67
--- NOTE | 2020-01-18 07:22 | NUR ---
HAND-OFF: Report given to bharat gordon. endorsed that the pt is high risk fall.he tries to pull out the condom catheter 3x and noted with kicking legs to the bed. advised to observed fall risk precautions.
--- NOTE | 2020-01-18 07:25 | NUR ---
NURSE NOTES: Received patient A/A/OX1, confused. asleep. On bilateral soft wrist restraints for removing devices. IV site patent and intact. IVF infusing well. On RA. Bed in lowest position. siderails are upx3. bed alarm and locked @ all times. HOB elevated for aspiration precaution. Call light within reach. Will continue to monitor.
[2020-01-18 08:01] VITALS: BP 151/89
[2020-01-18] MEDS: Aspirin Baby 81mg NG SCH (08:16)
[2020-01-18] MEDS: Allopurinol 100mg Tab ORAL SCH (08:16)
[2020-01-18] MEDS: Heparin 5000 units/ml inj SUBQ SCH ×2 (08:17→20:38)
[2020-01-18] MEDS: BRILINTA 90 MG ORAL SCH (08:28)
--- NOTE | 2020-01-18 08:49 | General Progress Note ---
Assessment/Plan Assessment/Plan: toxic met encephalopathy delirium agitation PLAN psych follow up monitor for change await clearance and dc back to snf will d/w psych and confirm impression, plan, and exam edited and reviewed in detail care discussed with RN Subjective Allergies: Coded Allergies: No Known Allergies (Unverified , 01/13/20) Subjective psych noted care reviewed Objective Last 24 Hour Vital Signs Date Time Temp Pulse Resp B/P (MAP) Pulse Ox O2 Delivery O2 Flow Rate FiO2 01/18/20 08:16 82 151/89 01/18/20 08:01 97.8 82 18 151/89 (109) 97 01/18/20 04:00 98.3 70 19 118/67 (84) 95 01/18/20 00:00 97.9 79 19 143/91 (108) 95 01/17/20 21:00 Room Air 01/17/20 20:15 86 155/94 01/17/20 20:00 98.0 86 20 145/94 (111) 95 01/17/20 16:00 98.8 79 19 144/86 (105) 96 01/17/20 12:00 96.8 77 18 161/79 (106) 98 01/17/20 09:00 Room Air 01/17/20 08:57 84 160/90 Intake and Output 01/17/20 01/18/20 19:00 07:00 Intake Total 600 ml 1000 ml Output Total 900 ml 850 ml Balance -300 ml 150 ml Intake Oral 400 ml IV Total 600 ml 600 ml Output Urine Total 900 ml 850 ml Height (Feet): 5 Height (Inches): 8.00 Weight (Pounds): 127 Objective WDWN NAD clear breath sounds bilaterally without rhonchi or wheeze [id number] without MRG NABS nontender no HSM no CCE nonfocal confused Ozzy Miner MD Jan 18, 2020 08:48
[2020-01-18 12:00] VITALS: BP 159/84
--- NOTE | 2020-01-18 12:00 | NUR ---
NURSE NOTES: INFORMED DR. SOTO RE; CHANGE IN CONDITION. O2 DESAT TO 84% VIA RA AND APPEARED LETHARGIC. PLACED O2 2L VIA NC. NEW ORDER OBTAINED. KEPT HOB ELEVATED FOR ASPIRATION PRECAUTION. WILL CONT TO MONITOR. Addendum: 01/18/20 at 1228 by TUCKER WALLER LVN ORDER OBTAINED AND CARRIED OUT.
--- NOTE | 2020-01-18 14:25 | NUR ---
PT note Attempted to see patient for treatment but patient was lethargic. No treatment given this date.
[2020-01-18 15:56] VITALS: BP 131/72
--- NOTE | 2020-01-18 18:58 | NUR ---
HAND-OFF: Report given to
[2020-01-18 20:11] VITALS: BP 153/82
--- NOTE | 2020-01-18 20:14 | NUR ---
NURSE NOTES: Received patient awake, confused, uncooperative, on bilateral soft wrist restraints.
[2020-01-18] MEDS: Tamsulosin 0.4mg cap ORAL SCH (20:36)
[2020-01-18] MEDS: Atorvastatin 20mg tab ORAL SCH (20:36)
[2020-01-19 00:20] VITALS: BP 151/89
[2020-01-19 04:36] VITALS: BP 130/78
--- NOTE | 2020-01-19 07:15 | NUR ---
NURSE NOTES: Handoff received from MICHELLE Barakat patient received in bilateral wrist restraints, patient is alert but confused, no acute signs of distress noted. Bed in the low and locked position with call light within reach. Patient has IV fluids running at prescribed rate, patient is on contact isolation, will continue to monitor patient.
--- NOTE | 2020-01-19 07:28 | NUR ---
HAND-OFF: Report given to Jamie Mas RN.
[2020-01-19 08:00] VITALS: BP 155/95
--- NOTE | 2020-01-19 08:20 | NUR ---
NURSE NOTES:Patient arrived from the floor from EGD, patient is alert and oriented and able to make needs known, Patient is complaining of 10/10 abdominal pain. Procedure done vitals stable, patient ambulated from gurney to bed. Patient reconnected to IV fluids. Patient has call light and bed is in the low and locked position, will administer pain medications when due and continue to monitor patient.
--- NOTE | 2020-01-19 08:35 | NUR ---
NURSE NOTES: PER DR KAPLAN PT IS CLEARED FOR DC, RELAYED TO DR SOTO RECEIVED DC ORDER BACK TO SNF. SPOKE W [facility] PT NOT ON BEDHOLD. FAXED INQUIRY TO [facility] W RECEIPT CONFIRMATION
--- NOTE | 2020-01-19 08:42 | General Progress Note ---
Assessment/Plan Assessment/Plan: toxic met encephalopathy delirium agitation PLAN psych follow up and clearance noted monitor for change dc back to snf today impression, plan, and exam edited and reviewed in detail care discussed with RN Subjective Allergies: Coded Allergies: No Known Allergies (Unverified , 01/13/20) Subjective psych noted care reviewed Objective Last 24 Hour Vital Signs Date Time Temp Pulse Resp B/P (MAP) Pulse Ox O2 Delivery O2 Flow Rate FiO2 01/19/20 04:36 97.8 89 20 130/78 (95) 96 01/19/20 00:20 98.2 100 20 151/89 (109) 95 01/18/20 20:36 91 153/82 01/18/20 20:23 Room Air 01/18/20 20:11 97.1 91 22 153/82 (105) 94 01/18/20 15:56 97.9 72 17 131/72 (91) 100 01/18/20 12:00 97.6 72 16 159/84 (109) 93 01/18/20 09:00 Room Air Intake and Output 01/18/20 01/19/20 19:00 07:00 Intake Total 1220 ml 1100 ml Balance 1220 ml 1100 ml Intake Oral 120 ml IV Total 1100 ml 1100 ml # Voids 3 # Bowel Movements 1 Laboratory Tests 01/18/20 12:08: Arterial Blood pH 7.372, Arterial Blood Partial Pressure CO2 40.2, Arterial Blood Partial Pressure O2 123.2H, Arterial Blood HCO3 22.8, Arterial Blood Oxygen Saturation 97.4, Arterial Blood Base Excess -2.2L, Jean-Pierre Test Positive Height (Feet): 5 Height (Inches): 8.00 Weight (Pounds): 127 Objective WDWN NAD clear breath sounds bilaterally without rhonchi or wheeze [id number] without MRG NABS nontender no HSM no CCE nonfocal confused Ozzy Miner MD Jan 19, 2020 08:42
--- NOTE | 2020-01-19 09:30 | NUR ---
CASE MANAGEMENT:NOTE PATIENT HAS BEEN REFERRED BACK TO [facility] P: [phone] F: [phone] Addendum: 01/19/20 at 1410 by СЕРГЕЙ CONTRERAS LVN LVN Mecca CEBALLOS AT [facility] ADMISSIONS. STATES SHE IS AWAITING CONFIRMATION OF A COLLEAGUE IN RE TO ACCEPTANCE OF PATIENT TO RETURN. WILL FOLLOW UP. Addendum: 01/19/20 at 1510 by СЕРГЕЙ CONTRERAS LVN LVN PER LIN AT [facility]. PATIENT ACCEPTED TO RETURN WITH FOLLOWING ROOM ASSIGNMENT 3Michael SYED
[2020-01-19] MEDS: Aspirin Baby 81mg NG SCH (10:21)
[2020-01-19] MEDS: Allopurinol 100mg Tab ORAL SCH (10:21)
[2020-01-19] MEDS: Heparin 5000 units/ml inj SUBQ SCH (10:22)
[2020-01-19] MEDS: BRILINTA 90 MG ORAL SCH (10:23)
--- NOTE | 2020-01-19 10:59 | NUR ---
NURSE NOTES: Patient's daughter Jacquelyn called for update on patient and to mention that she would like her father to go back to [facility].
--- NOTE | 2020-01-19 11:11 | Diagnostic Imaging Report ---
Indication: Dyspnea Comparison: None A single view chest radiograph was obtained. Findings: No definite infiltrate or pulmonary vascular congestion identified. The heart is enlarged. The aorta is mildly enlarged consistent with atherosclerotic vascular disease. The bones are osteopenic. There are thoracic vertebral enthesophytes at multiple levels. Impression: No acute disease
[2020-01-19 12:00] VITALS: BP 120/71
--- NOTE | 2020-01-19 13:36 | NUR ---
NURSE NOTES: restraints discontinued per Dr Marc.
--- NOTE | 2020-01-19 15:19 | NUR ---
*-*DISCHARGE PLANNING*-* PATIENT HAS BEEN REFERRED BACK TO: [facility] P: [phone] F: [phone]
--- NOTE | 2020-01-19 15:20 | NUR ---
*-*DISCHARGE PLANNING*-* PATIENT HAS BEEN ACCEPTED BACK TO: [facility] P: [phone] F: [phone]
--- NOTE | 2020-01-19 15:20 | NUR ---
*-*DISCHARGE PLANNED*-* PATIENT IS BEING DISCHARGED BACK TO: [facility] P: [phone] F: [phone] RM# 3.[facility] S/W LINDA [facility]IL[facility] 4PM/1600PM
--- NOTE | 2020-01-19 15:40 | NUR ---
NURSE NOTES:Called and gave report to MICHELLE Alas at [facility].
--- NOTE | 2020-01-19 15:48 | NUR ---
*-* INSURANCE *-* ALL CLINICALS AND REVIEWS HAVE BEEN FAXED TO: Ref# [id number] & German Jen Burt or tracking # mitch ph#[phone] fax# [phone]
[2020-01-19 16:00] VITALS: BP 132/89
[2020-01-19] MEDS ORDERED: QUETIAPINE FUMA25 MG ORAL (16:06)
--- NOTE | 2020-01-19 16:18 | NUR ---
NURSE NOTES:Patient discharged and left with EMS, IV site removed no bleeding or hematoma noted. Patient unable to sign belongings list, patient left with bilateral hearing aids which the patient is wearing and medications from pharmacy given to EMS. Patient left alert to person only, stable saturating at 94% on room air.
--- NOTE | 2020-01-19 16:22 | NUR ---
NURSE NOTES: LEFT MSG FOR DR SHIRLEY RE COLONIZATION ORDER FOR MRSA N AND VRE R. AWAIT CALL BACK.
--- NOTE | 2020-01-20 06:15 | Progress Note ---
DATE: 01/19/2020 SUBJECTIVE: The patient is doing well, continues to have episodes of agitation. Took him out of the restraints and attempted to jump the side of bed. Needs frequent redirection and is confused. MENTAL STATUS EXAMINATION: The patient is alert and oriented times self. Confused. Mood is neutral. Affect is flat. Thought process is concrete. Thought content, no suicidal or homicidal ideation. Cognition is impaired. Insight and judgment impaired. ASSESSMENT: Dementia with behavior disturbance. PLAN: 1. Continue the current psychotropic medication. 2. Haldol p.r.n. 3. Provide the patient with reality orientation. Keke Kirk M.D. DR: BRI JOB#: [id number] CC:
--- NOTE | 2020-01-20 16:09 | Discharge Summary ---
Discharge Summary Discharge Summary _ DATE OF ADMISSION: 01/13/2020 DATE OF DISCHARGE: 01/19/2020 DISCHARGED BY: Dr. Miner REASON FOR ADMISSION: 84 years old male with past medical history of hypertension, high cholesterol, congestive failure, prostate CA, dementia , was sent from the [facility] facility for evaluation due to altered mental status. According to the nursing staff , patient was increasingly more confused. Upon evaluation patient was found to have stable vital signs. Laboratory work-up revealed no leukocytosis , hemoglobin 12.9 , hematocrit 38.6 , platelet count 248. Stable electrolytes and renal parameters. Glucose 101. Stable LFT and lipase. Troponin 0.036. EKG revealed sinus rhythm with incomplete right bundle branch block. No acute ischemic changes. Albumin 2.9. Serum alcohol , salicylate and Tylenol levels were all negative. Urinalysis revealed no evidence of acute UTI. Urine toxicology screen was negative. Ammonia level less than 10. Patient subsequently admitted with altered mental status for further work-up and management CONSULTANTS: psychiatrist Dr. Kirk [facility]: Patient admitted and started on the IV hydration. Confusion was of unclear significance, likely due to toxic metabolic encephalopathy. Patient started on the IV fluids supportive care provided. Patient was monitored off antibiotics. MRI of the brain revealed no acute intracranial findings. Moderate atrophy and evidence of chronic small vessel disease , involving white matter tracts noted. Chest x-ray revealed no acute disease. Per psychiatrist, patient had dementia with behavioral disturbances. Patient started on psychiatric medication regimen as per psychiatrist. Patient was provided with supportive therapy and reality orientation. SNF medication continued. DVT and GI prophylaxis provided. Blood pressure was managed with beta-neli. Antiplatelet therapy with aspirin and statin continued. Bowel regimen instituted . Supportive care provided. Patient clinically stabilized , mental status improved to baseline. Patient was ready for transfer back to [facility] for continuation of care. FINAL DIAGNOSES: Toxic metabolic encephalopathy Dementia with behavioral disturbances Delirium Agitation DISCHARGE MEDICATIONS: See Medication Reconciliation list. DISCHARGE INSTRUCTIONS: Patient was discharged to the [facility] facility. Follow up with medical doctor at the facility. I have been assigned to dictate discharge summary for this account. I was not involved in the patient's management. Pam Francisco NP Jan 20, 2020 16:09
--- NOTE | 2020-01-21 14:23 | NUR ---
*-* INSURANCE *-* DISCHARGE SUMMARY HAS BEEN FAXED TO: Ref# [id number] & Halima Burt or tracking # mitch ph#[phone] fax# [phone]
== END 2020-01-19 16:23 | DRG 92 ==
LOC: EDBD 12:09 → EMR 12:43 → EDBEDREQ 13:44 → 4E 16:20 → EDBEDREQ 16:46 → 4E 01-18 16:53
DX: G92 Toxic encephalopathy (principal); F03.91 Unspecified dementia, unspecified severity, with behavioral disturbance; F05 Delirium due to known physiological condition; I11.0 Hypertensive heart disease with heart failure; I50.9 Heart failure, unspecified; I25.10 Atherosclerotic heart disease of native coronary artery without angina pectoris
CPT/HCPCS: 36415; 36600; 70551; 71045; 80053; 80307; 81003; 82140; 82550; 82803; 84443; 84484; 85025; 87081; 93005; 99285; G0480; J7030

== ENCOUNTER 2020-02-04 10:20 | Emergency (ER) | payer BC, MEDICARE ==
[~2020-02-04] VITALS: Ht 170.2 cm; Wt 68.0 kg
[~2020-02-04 10:20] MED LIST: ACETAMINOPHEN325 M1 ORAL; ADALAT10 MG ORAL; ALBUTEROL2.5 MG/3 M INH; ALLOPURINOL100 M1 ORAL; ASPIRIN EC81 MG ORAL; ATIVAN1 MG ORAL; ATORVASTATIN CA40 MG ORAL; BISACODYL5 MG ORAL; BRILINTA90 MG PO; DONEPEZIL HCL10 M2 ORAL; ENEMA133 M1 RC; FLOMAX0.4 MG ORAL; GABAPENTIN100 MG ORAL; GABAPENTIN300 MG ORAL; ISOSORBIDE DINIT5 MG ORAL; ISOSORBIDE MONO30 M1 PO; MAALOX ADVANCE770 ML PO; METOPROLOL TART25 MG ORAL; MILK OF MA400 MG/51 ORAL; NEXIUM40 MG ORAL; NITRO0.4 SL; NORCO 5-325 TA1 EACH ORAL; QUETIAPINE FUMA25 MG ORAL; ZOFRAN4 M3 ORAL
--- NOTE | 2020-02-04 10:30 | NUR ---
ED Nurse Note: Patient BIBA by [facility] from [facility] d/t unwitnessed fall this AM. Denies LOC, patient confused at baseline, no s/s of acute distress.
--- NOTE | 2020-02-04 10:30 | NUR ---
ED Nurse Note: pt. brought in by jean from [facility] due to a fall earlier this morning. denies loc. no trauma reported. Pt. sent by Dr. Miner to eval the patient for CT head
--- NOTE | 2020-02-04 11:36 | NUR ---
ED Nurse Note: Blood sample collected.
--- NOTE | 2020-02-04 11:55 | Diagnostic Imaging Report ---
Indication: Headache Technique: Contiguous 5 mm thick transaxial imaging of the head obtained in a Siemens Sensation [address] scanner. Soft tissue and bone windows generated. Automatic Exposure Control was utilized. Total Dose length Product (DLP): 1125.7mGycm CT Dose Index Volume (CTDIvol): 53.4 mGy Comparison: none Findings: There is moderate prominence of the ventricles, basal cisterns, and cerebral sulci consistent with atrophy. Moderate, nonspecific, white matter hypoattenuation is noted throughout the brain consistent with chronic small vessel disease. There is no midline shift, edema, acute hemorrhage, mass effect, or abnormal extra-axial fluid collections. Bones are unremarkable. Impression: No acute intracranial bleed, mass effect or edema. Moderate atrophy of the brain. Evidence of chronic small vessel disease involving white matter tracts. The CT scanner at [facility] is accredited by the [employer] and the scans are performed using dose optimization techniques as appropriate to a performed exam including Automatic Exposure control.
[2020-02-04 12:02] LABS: BASOPHILS % (AUTO) 2.3 % (0.0-2.0); EOSINOPHILS % (AUTO) 5.1 % (0.0-3.0); HEMATOCRIT 27.6 % (42.0-52.0); HEMOGLOBIN 9.4 G/DL (14.2-18.0); LYMPHOCYTES % (AUTO) 18.3 % (20.0-45.0); MEAN CORPUSCULAR VOLUME 101 FL (80-99); MONOCYTES % (AUTO) 7.5 % (1.0-10.0); NEUTROPHILS % (AUTO) 66.7 % (45.0-75.0); PLATELET COUNT 278 K/UL (150-450); RED BLOOD COUNT 2.74 M/UL (4.70-6.10); RED CELL DISTRIBUTION WIDTH 15.2 % (11.6-14.8); WHITE BLOOD COUNT 6.2 K/UL (4.8-10.8)
[2020-02-04 12:29] LABS: ANION GAP 10 mmol/L (5-15); BLOOD UREA NITROGEN 28 mg/dL (7-18); CALCIUM 9.1 MG/DL (8.5-10.1); CARBON DIOXIDE 25 MMOL/L (21-32); CHLORIDE 107 MMOL/L (98-107); CREATININE 1.1 MG/DL (0.55-1.30); POTASSIUM 4.7 MMOL/L (3.5-5.1); SODIUM 142 MMOL/L (136-145)
[2020-02-04 12:33] LABS: ALANINE AMINOTRANSFERASE 19 U/L (12-78); ALBUMIN 2.9 G/DL (3.4-5.0); ALBUMIN/GLOBULIN RATIO 0.7 (1.0-2.7); ALKALINE PHOSPHATASE 59 U/L (46-116); ASPARTATE AMINO TRANSFERASE 27 U/L (15-37); BILIRUBIN,TOTAL 0.6 MG/DL (0.2-1.0)
[2020-02-04 13:03] VITALS: BP 148/90
--- NOTE | 2020-02-04 13:18 | Emergency Room Report ---
History of Present Illness General Chief Complaint: Multiple Trauma/Fall Source: Patient Present Illness HPI This patient is brought in from a [facility] facility. He had a mechanical fall and hit the back of his head. The patient has no complaints. He denies pain in his neck. He denies headache. He denies weakness. There were no other injuries. He has no other complaints. COVID-19 risk:Travel to affect: No Allergies: Coded Allergies: No Known Allergies (Unverified , 01/13/20) Patient History Past Medical History: see triage record, HTN, GA, CAD, CHF, GERD, dementia, other - Prostate CA Social History: Denies: smoking, alcohol use, drug use Reviewed Nursing Documentation: PMH: Agreed; PSxH: Agreed Nursing Documentation-PMH Hx Cardiac Problems: Yes Hx Hypertension: Yes Hx Cancer: Yes Hx Gastrointestinal Problems: No Hx Dementia: Yes Review of Systems All Other Systems: negative except mentioned in HPI Physical Exam Vital Signs Date Time Temp Pulse Resp B/P (MAP) Pulse Ox O2 Delivery O2 Flow Rate FiO2 02/04/20 10:22 70 19 148/90 (109) 100 Sp02 EP Interpretation: reviewed, normal General Appearance: no apparent distress, alert, GCS 15, non-toxic Head: normocephalic, other - quarter-sized cephalohematoma on occiput Eyes: bilateral eye normal inspection, bilateral eye PERRL ENT: hearing grossly normal, normal pharynx, no angioedema, normal voice Neck: full range of motion, supple/symm/no masses Respiratory: chest non-tender, lungs clear, normal breath sounds, no respiratory distress, no retraction, no accessory muscle use, speaking full sentences Cardiovascular #1: regular rate, rhythm, no edema Gastrointestinal: normal bowel sounds, non tender, soft, non-distended, no guarding, no rebound Rectal: deferred Musculoskeletal: back normal, normal range of motion, gait/station normal, non- tender Neurologic: alert, motor strength/tone normal, oriented x3, sensory intact, responsive, speech normal Psychiatric: mood/affect normal Skin: no rash, normal color Medical Decision Making Diagnostic Impression: Primary Impression: Closed head injury Additional Impressions: Fall Anemia ER Course This patient has a clinical presentation consistent with minor head injury. Given the patient's age, I did obtain a CT of the head which is unremarkable. There are no red flags on physical exam that would make me concerned for intracranial bleed. This patient is not on any anticoagulation. The patient is noted to have a macrocytic anemia. This may be a B12 deficiency. I discussed this finding with the patient's primary care physician Dr. Miner and he stated that he is comfortable working up this macrocytic anemia at the [facility] facility. There is currently a coronavirus pandemic and the risk of admission in this elderly male versus the benefit weighs on the side of very high risk for morbidity and mortality if this patient were to be admitted to the hospital and contract coronavirus. The patient's daughter was bedside and agreed with the plan and would prefer this patient not be an inpatient in the hospital. I feel this is appropriate in the hospital admission is not indicated. The patient was discharged to the care of Dr. Miner in the [facility] facility. Laboratory Tests Test 02/04/20 11:34 White Blood Count 6.2 K/UL (4.8-10.8) Red Blood Count 2.74 M/UL (4.70-6.10) L Hemoglobin 9.4 G/DL (14.2-18.0) L Hematocrit 27.6 % (42.0-52.0) L Mean Corpuscular Volume 101 FL (80-99) H Mean Corpuscular Hemoglobin 34.2 PG (27.0-31.0) H Mean Corpuscular Hemoglobin Concent 34.0 G/DL (32.0-36.0) Red Cell Distribution Width 15.2 % (11.6-14.8) H Platelet Count 278 K/UL (150-450) Mean Platelet Volume 4.8 FL (6.5-10.1) L Neutrophils (%) (Auto) 66.7 % (45.0-75.0) Lymphocytes (%) (Auto) 18.3 % (20.0-45.0) L Monocytes (%) (Auto) 7.5 % (1.0-10.0) Eosinophils (%) (Auto) 5.1 % (0.0-3.0) H Basophils (%) (Auto) 2.3 % (0.0-2.0) H Prothrombin Time 10.7 SEC (9.30-11.50) Prothrombin Time INR 1.0 (0.9-1.1) Activated Partial Thromboplast Time 28 SEC (23-33) Sodium Level 142 MMOL/L (136-145) Potassium Level 4.7 MMOL/L (3.5-5.1) Chloride Level 107 MMOL/L (98-107) Carbon Dioxide Level 25 MMOL/L (21-32) Anion Gap 10 mmol/L (5-15) Blood Urea Nitrogen 28 mg/dL (7-18) H Creatinine 1.1 MG/DL (0.55-1.30) Estimated Glomerular Filtration Rate > 60 mL/min (>60) Glucose Level 117 MG/DL (74-106) H Calcium Level 9.1 MG/DL (8.5-10.1) Total Bilirubin 0.6 MG/DL (0.2-1.0) Aspartate Amino Transferase (AST) 27 U/L (15-37) Alanine Aminotransferase (ALT) 19 U/L (12-78) Alkaline Phosphatase 59 U/L (46-116) Total Protein 7.0 G/DL (6.4-8.2) Albumin 2.9 G/DL (3.4-5.0) L Globulin 4.1 g/dL Albumin/Globulin Ratio 0.7 (1.0-2.7) L CT/MRI/US Diagnostic Results CT/MRI/US Diagnostic Results : Imaging Test Ordered: CT head Impression No acute findings. Specifically no intracranial bleed, mass effect or edema. See official report. Last Vital Signs Date Time Temp Pulse Resp B/P (MAP) Pulse Ox O2 Delivery O2 Flow Rate FiO2 02/04/20 10:22 70 19 148/90 (109) 100 Disposition: XFER SNF Condition: Stable Referrals: [facility] (PCP) Tracey Osorio DO Feb 04, 2020 13:18
[2020-02-04 13:40] VITALS: BP 148/90
--- NOTE | 2020-02-04 13:40 | NUR ---
ED Nurse Note: Report given to Farhan MARTINEZ at [facility]. Packet sent with transport.
== END 2020-02-04 13:40 ==
LOC: EDBD 10:20 → EDUNIT# 10:20 → EMR 11:03
DX: S09.90XA Unspecified injury of head, initial encounter (principal); W19.XXXA Unspecified fall, initial encounter; Y92.9 Unspecified place or not applicable; I11.0 Hypertensive heart disease with heart failure; I25.2 Old myocardial infarction; K21.9 Gastro-esophageal reflux disease without esophagitis; F03.90 Unspecified dementia, unspecified severity, without behavioral disturbance, psychotic disturbance, mood disturbance, and anxiety; Z85.46 Personal history of malignant neoplasm of prostate; D50.9 Iron deficiency anemia, unspecified
CPT/HCPCS: 36415; 70450; 80053; 85025; 85610; 85730; 99284